=== PATIENT | female | born 1995 | race Two or more races ===

== ENCOUNTER 2017-03-09 15:27 | Outpatient (CLI) | payer OTHER | END 2017-03-09 15:28 | disposition home or self-care (01) | LOC: SC 15:27 | PROVIDERS: ATTEND Internal Medicine Pulmonary Disease | DX: G47.21 Circadian rhythm sleep disorder, delayed sleep phase type (principal); R06.83 Snoring | CPT/HCPCS: 99203; 99212 ==

== ENCOUNTER 2017-04-23 07:25 | Outpatient (CLI) | payer OTHER | END 2017-04-23 07:26 | disposition home or self-care (01) | LOC: SC 07:25 | PROVIDERS: ATTEND Internal Medicine Pulmonary Disease | DX: G47.10 Hypersomnia, unspecified (principal); R06.83 Snoring | CPT/HCPCS: 95810 ==

== ENCOUNTER 2017-07-28 03:25 | Emergency (ER) | payer OTHER ==
--- NOTE | 2017-07-28 03:50 | ED Physician Documentation ---
PD HPI CHEST PAIN - Stated complaint Stated Complaint: SHORTNESS OF BREATH,CHEST PAIN - Chief complaint Chief Complaint: Cardiac - History obtained from History obtained from: Patient, Friend - History of Present Illness Timing - onset: How many hours ago (9) Timing - onset during: Rest Timing - details: Intermittant Quality: Pressure, Tightness Location: Left chest Associated symptoms: Feeling faint / dizzy. No: Shortness of air, Diaphoresis Similar symptoms before: No diagnosis Recently seen: Not recently seen - Additional information Additional information: Patient is a 22 year old female with multiple psychiatric disorders who is presenting to the emergency department for chest tightness. Patient states that it started about 9 hours ago after dinner. She describes it as tightness and pressure. Patient denies any history of blood clots or early cardiac history. Patient is on multiple medications and very non-descriptive. Review of Systems Constitutional: denies: Fever, Chills Eyes: reports: Reviewed and negative Ears: reports: Reviewed and negative Nose: reports: Reviewed and negative Throat: denies: Sore throat Cardiac: reports: Chest pain / pressure. denies: Pedal edema, Calf pain Respiratory: denies: Dyspnea, Cough, Wheezing GI: reports: Nausea. denies: Vomiting, Constipation, Diarrhea : reports: Reviewed and negative Skin: reports: Reviewed and negative Musculoskeletal: denies: Extremity pain, Extremity swelling Neurologic: denies: Generalized weakness, Focal weakness, Headache, Head injury , LOC Psychiatric: reports: Anxiety, Insomnia Immunocompromised: denies: Immunocompromised PD PAST MEDICAL HISTORY - Present Medications Home Medications: Ambulatory Orders Medication Instructions Recorded Confirmed Dextroamphetamine/Amphetamine 30 mg PO DAILY 07/28/17 07/28/17 [Adderall 30 mg Tablet] [place] [Lorenz Park] 300 mg PO BID 07/28/17 07/28/17 Propranolol [Inderal] 20 mg PO DAILY 07/28/17 07/28/17 Spironolactone 100 mg PO DAILY 07/28/17 07/28/17 raNITIdine [Zantac] 150 mg PO DAILY 07/28/17 07/28/17 - Allergies Allergies/Adverse Reactions: Allergies Allergy/AdvReac Type Severity Reaction Status Date / Time No Known Drug Allergies Allergy Verified 07/28/17 03:38 PD ED PE NORMAL - Vitals Vital signs reviewed: Yes - General General: Alert and oriented X 3, No acute distress - HEENT HEENT: Atraumatic, PERRL, Moist mucous membranes - Neck Neck: Supple, no meningeal sign - Cardiac Cardiac: RRR, No murmur - Respiratory Respiratory: No respiratory distress, Clear bilaterally - Abdomen Abdomen: Soft, Non tender, Non distended - Derm Derm: Normal color, Warm and dry, No rash - Extremities Extremities: No deformity, No edema - Neuro Neuro: Alert and oriented X 3, No motor deficit, Normal speech Eye Opening: Spontaneous Motor: Obeys Commands Verbal: Oriented GCS Score: 15 PD ED PE EXPANDED - Psych Psych: Withdrawn, Other (flat affect) Results - Vitals Vitals: Vital Signs - 24 hr 07/28/17 03:36 Temperature 36.3 C L Heart Rate 66 Respiratory 18 Rate Blood Pressure 138/76 H O2 Saturation 95 Oxygen O2 Source Room air - EKG (time done) 0336 Rate: Rate (enter#) (67) Rhythm: NSR [place]: Normal Intervals: Normal DE QRS: Normal Ischemia: Normal ST segments Compare to prior EKG: Old EKG unavailable Computer interpretation: Agree with computer - Labs Labs: Laboratory Tests 07/28/17 04:05 Troponin I < 0.04 - Rads (name of study) chest x-ray Radiology: EMP read indepedently (no acute disease process), EMP read contemporaneously PD MEDICAL DECISION MAKING - ED course Complexity details: reviewed old records, reviewed results, re-evaluated patient , considered differential, d/w patient, d/w family ED course: Patient was seen and examined at bedside. Patient seemed to be medicated with her trazadone and lithium. Patient' diagnostics were all within normal limits. PE, pulmonary or cardiac source of the pain was unlikely. Patient required no further inpatient work up and was stable for discharge with outpatient follow up. Departure - Departure Disposition: 01 Home, Self Care Clinical Impression: Atypical chest pain Condition: Good Instructions: ED Chest Pain NonCardiac Follow-Up: Sin Doll DO [Primary Care Provider] - Within 3 Days Comments: Your diagnostics today were within normal limits. Your symptoms are unlikely cardiac or pulmonary in nature. It is likely secondary to anxiety and partially due to your medications. You are on multiple medications that can cause dizziness and lightheadedness. you should follow up with your doctor this week for re-evaluation and care.
--- NOTE | 2017-07-28 04:48 | XRAY Preliminary Report ---
Exam: XR CHEST 1 VIEW X-RAY IMPRESSION: Small lung volumes. No acute cardiopulmonary abnormality demonstrated. [facility] SITE ID: [id number]
--- NOTE | 2017-07-28 04:48 | XRAY Report ---
EXAM: CHEST RADIOGRAPHY EXAM DATE: 07/28/2017 04:23 AM. CLINICAL HISTORY: Chest tightness COMPARISON: None. TECHNIQUE: 1 view. FINDINGS: Lungs/Pleura: Small volumes. No focal opacities evident. No pleural effusion. No pneumothorax. Mediastinum: Within exam limitations, the cardiomediastinal contour is normal. Other: Right upper quadrant clips indicate prior cholecystectomy. IMPRESSION: Small lung volumes. No acute cardiopulmonary abnormality demonstrated. [facility] Referring Provider Line: [phone] SITE ID: [id number]
[2017-07-28 04:54] VITALS: BP 107/73
== END 2017-07-28 04:54 | disposition home or self-care (01) ==
LOC: ED 03:25
DX: R07.89 Other chest pain (principal); R42 Dizziness and giddiness; F41.9 Anxiety disorder, unspecified
CPT/HCPCS: 36415; 71045; 84484; 93005; 99283

== ENCOUNTER 2017-09-01 14:24 | Outpatient (CLI) | payer OTHER | END 2017-09-01 14:25 | disposition home or self-care (01) | LOC: SC 14:24 | PROVIDERS: ATTEND Nurse Practitioner Family | DX: R06.83 Snoring (principal); G47.00 Insomnia, unspecified | CPT/HCPCS: 99212; 99214 ==

== ENCOUNTER 2017-11-23 08:00 | Outpatient (CLI) | payer OTHER | END 2017-11-23 08:01 | disposition home or self-care (01) | LOC: LAB.R 08:00 | PROVIDERS: ATTEND Registered Nurse | DX: Z30.430 Encounter for insertion of intrauterine contraceptive device (principal) | CPT/HCPCS: 87491; 87591 ==

== ENCOUNTER 2018-03-30 15:59 | Outpatient (CLI) | payer OTHER | END 2018-03-30 23:59 | LOC: LAB.R 15:59 | PROVIDERS: ATTEND Registered Nurse | DX: N92.0 Excessive and frequent menstruation with regular cycle (principal) | CPT/HCPCS: 87491; 87591 ==

== ENCOUNTER 2018-09-28 08:00 | Outpatient (CLI) | payer OTHER | END 2018-09-28 23:59 | disposition home or self-care (01) | LOC: LAB.R 08:00 | PROVIDERS: ATTEND Registered Nurse | DX: Z11.3 Encounter for screening for infections with a predominantly sexual mode of transmission (principal) | CPT/HCPCS: 87491; 87591 ==

== ENCOUNTER 2018-12-30 08:00 | Outpatient (CLI) | payer OTHER ==
[2018-12-30 21:23] LABS: TRICHOMONAS VAGINALIS DNA NEGATIVE (NEGATIVE)
== END 2018-12-30 23:59 | disposition home or self-care (01) ==
LOC: LAB.R 08:00
PROVIDERS: ATTEND Obstetrics & Gynecology
DX: Z70.8 Other sex counseling (principal); Z30.430 Encounter for insertion of intrauterine contraceptive device
CPT/HCPCS: 87491; 87591; 87661

== ENCOUNTER 2020-03-09 08:00 | Outpatient (CLI) | payer BC, MEDICAID ==
[2020-03-09 18:35] LABS: BASOPHILS # (AUTO) 0.1 10^3/uL (0.0-0.1); BASOPHILS % (AUTO) 0.7 %; EOSINOPHILS # (AUTO) 0.3 10^3/uL (0.0-0.7); EOSINOPHILS % (AUTO) 2.6 %; HGB - HEMOGLOBIN 13.5 g/dL (12.0-16.0); LYMPHOCYTES # (AUTO) 3.3 10^3/uL (1.5-3.5); LYMPHOCYTES % (AUTO) 30.9 %; MEAN CORPUSCULAR HEMOGLOBIN 31.2 pg (27.0-31.0); MEAN CORPUSCULAR HGB CONC 34.8 g/dL (32.0-36.0); MEAN CORPUSCULAR VOLUME 89.6 fL (81.0-99.0); MEAN PLATELET VOLUME 9.7 fL (7.9-10.8); MONOCYTES # (AUTO) 0.8 10^3/uL (0.0-1.0); MONOCYTES % (AUTO) 7.5 %; NEUTROPHILS # (AUTO) 6.2 10^3/uL (1.5-6.6); NEUTROPHILS % (AUTO) 57.8 %; PLT - PLATELET COUNT 404 10^3/uL (130-450); RED BLOOD COUNT 4.33 10^6/uL (4.20-5.40); RED CELL DISTRIBUTION WIDTH 12.9 % (12.0-15.0); WHITE BLOOD COUNT 10.7 x10^3/uL (4.8-10.8)
[2020-03-09 18:58] LABS: PLATELET ESTIMATE, MANUAL NORMAL (130-450,000) (NORMAL); PLATELET MORPHOLOGY NORMAL APPEARANCE (NORMAL); RBC MORPHOLOGY (MULTIPLE) NORMAL APPEARANCE (NORMAL)
[2020-03-09 20:02] LABS: ALBUMIN 3.9 g/dL (3.2-5.5); ALBUMIN/GLOBULIN RATIO 1.2 (1.0-2.2); BILIRUBIN,TOTAL 0.6 mg/dL (0.2-1.0); CALCIUM 9.3 mg/dL (8.5-10.3); CREATININE 0.7 mg/dL (0.4-1.0); TOTAL PROTEIN 7.1 g/dL (6.7-8.2)
== END 2020-03-09 23:59 | disposition home or self-care (01) ==
LOC: LAB.WCP 08:00
PROVIDERS: ATTEND Nurse Practitioner Family
DX: E03.9 Hypothyroidism, unspecified (principal); E28.1 Androgen excess; Z79.899 Other long term (current) drug therapy
CPT/HCPCS: 36415; 80053; 84443; 85025

== ENCOUNTER 2020-04-02 16:20 | Outpatient (CLI) | payer BC, MEDICAID ==
--- NOTE | 2020-04-02 16:58 | SLEEP CARE CONSULTATION ---
Information from patient questionnaire entered by Campbell Richards. I have reviewed and concur with the information entered by Campbell Richards. This document represents the service I personally performed and the decisions made by , Luna Ortiz ARNP. History of Present Illness Service Date and Time: 04/02/2020 1620 AHI: 4.8 Reason for follow up: annual (last seen 2017) Year and Where: [address] [facility] Type of Sleep Study: Polysomnography HPI additional information: DONTE FISHER with last AHI 4.8, returns today with mother for follow up of previous study. She was suppose to get a home study but was unable to get this done. She returns today to schedule an at home sleep study since the in lab study was difficult because she was unable to sleep. She continues to have unrefreshed sleep, morning headaches, snoring, excessive daytime sleepiness and fatigue. Subjective Current [place] Sleepiness Scale score: 13 Allergies and Home Medications Drug allergies reviewed: Yes (NKDA) Home medication list reviewed: Yes (fluoxetine, stomach acid pill, adderall added) Review of Systems Review of systems same as previous: Yes (no changes) Physical Exam Heart Rate: 79 O2 Saturation: 98 Height: 5 ft 2 in Weight: 252 lb Body Mass Index: 46.0 BMI Classification: Morbidly Obese Impression and Plan 1. Suspected Obstructive Sleep Apnea-Hypopnea Syndrome, as suggested by a history of snoring, morning headache, frequent awakening during the night, unrefreshed sleep, cognitive impairment, and excessive daytime sleepiness. Narrow oropharynx and obesity are common predisposing factors for obstructive sleep apnea-hypopnea syndrome. I recommend proceeding to polysomnography to confirm the diagnosis and to assess severity. If the patient has significant sleep disordered breathing, a manual CPAP titration study will also be performed to find the optimal treatment pressure. I informed the patient of what the sleep studies involve and after some discussion, obtained agreement to proceed. The pathophysiology of obstructive sleep apnea-hypopnea syndrome was discussed with the patient and health risks of cardiovascular and cerebrovascular disease if not treated. Risks of drowsy driving discussed in detail and patient advised to avoid long distance driving and to machine puller at the first sign of drowsiness. Patient agreed to plan. * Schedule HST polysomnography * Avoid long distance driving or driving when feeling sleepy. * Avoid alcohol, sedative and muscle relaxant around bedtime. * Attempt to lose weight. * Review instructions provided by trained office staff on how to prepare for the sleep study. * Return for follow-up after sleep study completed. Visit Type: In Office Time Spent with Patient (minutes): 15 Provider Statement: I spent 100% of the Face to Face Visit with the patient with greater than 50% spent counseling the patient and coordination of care.
== END 2020-04-02 16:21 | disposition home or self-care (01) ==
LOC: SC 16:20
PROVIDERS: ATTEND Nurse Practitioner Family
DX: G47.10 Hypersomnia, unspecified (principal); R51.9 Headache, unspecified; G47.8 Other sleep disorders; R41.89 Other symptoms and signs involving cognitive functions and awareness; R06.83 Snoring; E66.01 Morbid (severe) obesity due to excess calories; Z68.42 Body mass index [BMI] 45.0-49.9, adult
CPT/HCPCS: 99212; 99213

== ENCOUNTER 2020-06-22 09:06 | Outpatient (CLI) | payer BC, MEDICAID | END 2020-06-22 09:07 | disposition home or self-care (01) | LOC: SC 09:06 | PROVIDERS: ATTEND Nurse Practitioner Family | DX: G47.10 Hypersomnia, unspecified (principal); G47.8 Other sleep disorders; R06.83 Snoring; E66.9 Obesity, unspecified; Z68.41 Body mass index [BMI] 40.0-44.9, adult | CPT/HCPCS: 95806 ==

== ENCOUNTER 2020-07-09 14:24 | Outpatient (CLI) | payer BC, MEDICAID ==
--- NOTE | 2020-07-09 15:20 | SLEEP CARE CONSULTATION ---
Information from patient questionnaire entered by Elif Restrepo. I have reviewed and concur with the information entered by Elif Restrepo. This document represents the service I personally performed and the decisions made by me, Mayito Cordova MD, [facility]. History of Present Illness Service Date and Time: 07/09/2020 1424 Initial [place] Sleepiness Scale score: 11 (in 2017) Current [place] Sleepiness Scale score: 19 Additional HPI information: HPI: Ms. Tineo returned for follow up of the home sleep apnea test (HSAT) performed on 06-23-20. The TEST showed no significant sleep disordered breathing. There was mild hypoxemia. The patient only slept supine. Heart rate was within normal limits. The patient was informed of these findings. I explained to her that the home sleep apnea test is again negative for significant sleep disordered breathing. She had an in-laboratory polysomnography in 2017 that showed also an AHI of 4.8. The patient main complaint is fatigue and daytime sleepiness despite taking Adderall for ADHD. Sleep Study - Results Type of Sleep Study: Home sleep study Prior sleep studies: Yes (Poly) Year and Where: 2017 - [facility] Allergies and Home Medications Drug allergies reviewed: Yes Home medication list reviewed: Yes Review of Systems Review of systems same as previous: Yes Physical Exam Height: 5 ft 2 in Weight: 152 lb Weight change since last visit: -8 Body Mass Index: 27.8 BMI Classification: Overweight Impression and Plan IMPRESSION: 1. Fatigue and hypersomnia, not explained by sleep-disordered breathing. However, the home sleep apnea test (HSAT) could be false negative. It does not address other sleep disrupting conditions either. Therefore, I will order an in-laboratory polysomnography. A multiple sleep latency test (MSLT) cannot be performed because she is taking a stimulant. PLAN: 1. Order an in-laboratory polysomnography. 2. Attempt to lose weight. 3. Return for a full face mask after the sleep study. Follow up recommended for: Weight management Visit Type: In Office Time Spent with Patient (minutes): 15 Provider Statement: I spent 100% of the Face to Face Visit with the patient with greater than 50% spent counseling the patient and coordination of care.
== END 2020-07-09 14:25 | disposition home or self-care (01) ==
LOC: SC 14:24
PROVIDERS: ATTEND Internal Medicine Pulmonary Disease
DX: G47.10 Hypersomnia, unspecified (principal); R53.83 Other fatigue; E66.3 Overweight; Z68.27 Body mass index [BMI] 27.0-27.9, adult
CPT/HCPCS: 99212

== ENCOUNTER 2021-12-02 16:02 | Outpatient (CLI) | payer MEDICAID ==
[2021-12-02 17:22] LABS: CALCIUM 9.4 mg/dL (8.5-10.3); CREATININE 0.8 mg/dL (0.4-1.0); POTASSIUM 4.3 mmol/L (3.5-5.0)
[2021-12-02 17:43] LABS: THYROID STIMULATING HORMONE 1.07 uIU/mL (0.34-5.60)
[2021-12-02 17:45] LABS: FREE T4 (FREE THYROXINE) 0.62 ng/dL (0.58-1.64)
[2021-12-02 17:48] LABS: LITHIUM 0.42 mmol/L
== END 2021-12-02 16:03 | disposition home or self-care (01) ==
LOC: LAB 16:02
PROVIDERS: ATTEND Psychiatry & Neurology Psychiatry
DX: F41.1 Generalized anxiety disorder (principal); F33.1 Major depressive disorder, recurrent, moderate; F90.9 Attention-deficit hyperactivity disorder, unspecified type; Z79.899 Other long term (current) drug therapy
CPT/HCPCS: 36415; 80048; 80178; 84439; 84443; 93005

== ENCOUNTER 2022-05-23 08:00 | Outpatient (CLI) | payer MEDICAID ==
[2022-05-23 21:02] LABS: MUDS CUTOFF CONCENTRATIONS CUTOFF CONC BELOW:
[2022-05-23 22:08] LABS: AMPHETAMINE SCREEN,URINE POSITIVE (NEGATIVE); BARBITURATE SCREEN,UR NEGATIVE (NEGATIVE); BENZODIAZEPINES SCREEN, URINE NEGATIVE (NEGATIVE); COCAINE SCREEN URINE NEGATIVE (NEGATIVE); METHADONE SCREEN, URINE NEGATIVE (NEGATIVE); METHAMPHETAMINES SCREEN, URINE NEGATIVE (NEGATIVE); OPIATE SCREEN, URINE NEGATIVE (NEGATIVE); OXYCODONE SCREEN, URINE NEGATIVE (NEGATIVE); PROPOXYPHENE SCREEN, URINE NEGATIVE (NEGATIVE); THC CANNABINOID SCREEN, URINE NEGATIVE (NEGATIVE); TRICYCLIC ANTIDEPRESSANT,URINE NEGATIVE (NEGATIVE)
== END 2022-05-23 23:59 | disposition home or self-care (01) ==
LOC: LAB 08:00
PROVIDERS: ATTEND Nurse Practitioner Family
DX: F90.9 Attention-deficit hyperactivity disorder, unspecified type (principal); Z79.899 Other long term (current) drug therapy
CPT/HCPCS: 80306

== ENCOUNTER 2023-10-02 11:15 | Outpatient (CLI) | payer MEDICAID ==
[2023-10-02 21:09] LABS: BACTERIAL VAGINOSIS DNA NEGATIVE (NEGATIVE); CANDIDA GLABRATA DNA NEGATIVE (NEGATIVE); CANDIDA GROUP DNA NEGATIVE (NEGATIVE); CANDIDA KRUSEI DNA NEGATIVE (NEGATIVE); TRICHOMONAS VAGINALIS DNA NEGATIVE (NEGATIVE)
[2023-10-02 23:46] LABS: CHLAMYDIA TRACHOMATIS DNA NEGATIVE (NEGATIVE); NEISSERIA GONORRHOEAE DNA NEGATIVE (NEGATIVE)
== END 2023-10-02 11:30 | disposition home or self-care (01) ==
LOC: LAB.N 11:15
PROVIDERS: ATTEND Physician Assistant
DX: N76.0 Acute vaginitis (principal)
CPT/HCPCS: 81514; 87491; 87591; 87661